=== PATIENT | female | born 1960 | race Caucasian/White ===

== ENCOUNTER 2017-08-19 20:54 | Emergency (ER) | payer MEDICAID ==
[~2017-08-19] VITALS: Ht 160 cm; Wt 98.9 kg
[2017-08-19 21:10] VITALS: BP 159/89
--- NOTE | 2017-08-19 21:17 | NUR ---
TO ER BED 2
--- NOTE | 2017-08-19 21:30 | NUR ---
PATIENT PRESENTS TO ED WITH C/O SOB, NAUSEA, ABDOMINAL PAIN, FALL YESTERDAY AT HOME, BRUISE NOTED TO LEFT ELBOW, GENERALIZED PAIN. DENIES V/D; SKIN IS PINK/WARM/DRY; LEFT ELBOW BRUISE NOTED, AAOX4 WITH EVEN AND STEADY GAIT; LUNGS CLEAR BL; HR EVEN AND REGULAR; PT DENIES ANY FEVER, CP, SOB, OR COUGH AT THIS TIME; PATIENT STATES PAIN OF 0/10 AT THIS TIME; VSS; PATIENT POSITIONED FOR COMFORT; HOB ELEVATED; BEDRAILS UP X2; BED DOWN. ER MD MADE AWARE OF PT STATUS.
[2017-08-19] MEDS ORDERED: DIAZEPAM PFS 10 MG/2 ML SYR IM ONE (22:05)
[2017-08-19 22:34] VITALS: BP 143/82
== END 2017-08-19 22:34 | disposition home or self-care (01) ==
LOC: MED 20:54
DX: F41.9 Anxiety disorder, unspecified (principal); R03.0 Elevated blood-pressure reading, without diagnosis of hypertension
CPT/HCPCS: 81025; 96372; 99283; J3360